=== PATIENT | female | born 1980 | race American Indian/Alaskan Native ===

== ENCOUNTER 2017-05-31 12:57 | Emergency (ER) | payer MEDICAID ==
[2017-05-31 13:05] VITALS: BP 168/107
--- NOTE | 2017-05-31 16:43 | Emergency Department Report ---
- General Chief Complaint: Eye Problems Stated Complaint: EYE/SINUS PAIN Time Seen by Provider: 05/31/17 15:46 Source: patient Mode of arrival: Ambulatory Limitations: No Limitations - History of Present Illness Initial Comments: This is a 36-year-old female nontoxic, well nourished in appearance, no acute signs of distress presents to the ED with c/o of front sinus pain, cough, rhinorrhea times one week. Patient is also c/o of painless nodular in the outer left upper eyelid. Patient stated this is present for the past month. Patient stated had this and resovled 3 months ago and came back. Patient denies any trauma, visual changes, or eye discharge. Patient denies productive cough. Denies any wheezing, chest pain, shortness of breath, numbness, tingling, chest pain or nausea or vomiting. Patient denies stiff neck or headache. Past medical history includes hypertension. Denies any drug allergies. MD Complaint: cough, rhinorrhea, nasal congestion, sinus pain, other (Chalazion ) -: Gradual, week(s) (1) Severity: mild Severity scale (0 -10): 8 Quality: aching Consistency: constant Improves With: nothing Worsens With: nothing Associated Symptoms: rhinorrhea, nasal congestion, cough. denies: fever, chills , myalgias, diaphoresis, headache, sore throat, stiff neck, chest pain, shortness of breath, abdominal pain, nausea, vomiting, diarrhea, dysuria, rash, right sweats, weight loss, epistaxis, hoarseness, ear pain Treatments Prior to Arrival: none - Related Data Previous Rx's Medication Instructions Recorded Last Taken Type Amoxicillin/K Clav Tab [Augmentin 1 tab PO Q12HR #20 tab 05/31/17 Unknown Rx 875 mg] Fluconazole [Diflucan TAB] 150 mg PO ONCE #2 tablet 05/31/17 Unknown Rx Allergies Allergy/AdvReac Type Severity Reaction Status Date / Time No Known Allergies Allergy Unverified 05/31/17 13:05 ED Review of Systems ROS: Stated complaint: EYE/SINUS PAIN Other details as noted in HPI Constitutional: denies: chills, fever Eyes: denies: eye pain, eye discharge, vision change ENT: congestion. denies: ear pain, throat pain Respiratory: cough. denies: shortness of breath, wheezing Cardiovascular: denies: chest pain, palpitations Endocrine: no symptoms reported Gastrointestinal: denies: abdominal pain, nausea, diarrhea Genitourinary: denies: urgency, dysuria, discharge Musculoskeletal: denies: back pain, joint swelling, arthralgia Skin: denies: rash, lesions Neurological: denies: headache, weakness, paresthesias Psychiatric: denies: anxiety, depression Hematological/Lymphatic: denies: easy bleeding, easy bruising ED Past Medical Hx - Past Medical History Hx Hypertension: Yes - Surgical History Additional Surgical History: x2 - Social History Smoking Status: Current Every Day Smoker Substance Use Type: None - Medications Home Medications: Home Medications Medication Instructions Recorded Confirmed Last Taken Type Amoxicillin/K Clav Tab [Augmentin 1 tab PO Q12HR #20 tab 05/31/17 Unknown Rx 875 mg] Fluconazole [Diflucan TAB] 150 mg PO ONCE #2 tablet 05/31/17 Unknown Rx ED Physical Exam - General Limitations: No Limitations General appearance: alert, in no apparent distress - Head Head exam: Present: atraumatic, normocephalic, normal inspection - Eye Eye exam: Present: normal appearance, PERRL, EOMI, other (painless with nodular lesion to the left upper outer eyelid). Absent: scleral icterus, conjunctival injection, nystagmus, periorbital swelling, periorbital tenderness Pupils: Present: normal accommodation - ENT ENT exam: Present: normal exam, normal orophraynx, mucous membranes moist, TM's normal bilaterally, normal external ear exam - Neck Neck exam: Present: normal inspection, full ROM. Absent: tenderness, meningismus, lymphadenopathy, thyromegaly - Respiratory Respiratory exam: Present: normal lung sounds bilaterally. Absent: respiratory distress, wheezes, rales, rhonchi, stridor, chest wall tenderness, accessory muscle use, decreased breath sounds, prolonged expiratory - Cardiovascular Cardiovascular Exam: Present: regular rate, normal rhythm, normal heart sounds. Absent: bradycardia, tachycardia, irregular rhythm, systolic murmur, diastolic murmur, rubs, gallop - GI/Abdominal GI/Abdominal exam: Present: soft, normal bowel sounds. Absent: distended, tenderness, guarding, rebound, rigid, diminished bowel sounds - Rectal Rectal exam: Present: deferred - Extremities Exam Extremities exam: Present: normal inspection, full ROM, normal capillary refill. Absent: tenderness, pedal edema, joint swelling, calf tenderness - Back Exam Back exam: Present: normal inspection, full ROM. Absent: tenderness, CVA tenderness (R), CVA tenderness (L), muscle spasm, paraspinal tenderness, vertebral tenderness, rash noted - Neurological Exam Neurological exam: Present: alert, oriented X3, CN II-XII intact, normal gait, reflexes normal - Psychiatric Psychiatric exam: Present: normal affect, normal mood - Skin Skin exam: Present: warm, dry, intact, normal color. Absent: rash - Other Other exam information: Positive frontal sinus tenderness. ED Course Vital Signs 05/31/17 13:02 Temperature 97.5 F L Pulse Rate 81 Respiratory 18 Rate Blood Pressure 168/107 O2 Sat by Pulse 97 Oximetry - Reevaluation(s) Reevaluation #1: 05/31/17 16:45 Patient is speaking in full sentences with no signs of distress noted. ED Medical Decision Making - Medical Decision Making This is a 36-year-old female that presents with sinusitis, upper resp infection , and chalazion. Patient was examined by me and patient is stable. Patient was instructed to place warm compressors to the left eyelid and should resolve or if not to follow-up with an opthomologist. Patient will be treated with augmentin at d/c. Patient was instructed to Follow-up with a primary care doctor in 3-5 days or if symptoms worsen and continue return to emergency room as soon as possible. At time time of discharge, the patient does not seem toxic or ill in appearance. No acute signs of distress noted. Patient agrees to discharge treatment plan of care. No further questions noted by the patient. Patient received Diflucian due to yeast infections that patients gets during antibiotics use. Critical care attestation.: If time is entered above; I have spent that time in minutes in the direct care of this critically ill patient, excluding procedure time. ED Disposition Clinical Impression: Upper respiratory infection Qualifiers: URI type: unspecified URI Qualified Code(s): J06.9 - Acute upper respiratory infection, unspecified Sinusitis Qualifiers: Sinusitis location: frontal Chronicity: acute Recurrence: non-recurrent Qualified Code(s): J01.10 - Acute frontal sinusitis, unspecified Chalazion Qualifiers: Laterality: left Eyelid: upper Qualified Code(s): H00.14 - Chalazion left upper eyelid Disposition: DC-01 TO HOME OR SELFCARE Is pt being admited?: No Does the pt Need Aspirin: No Condition: Stable Instructions: Chalazion (ED), Sinusitis (ED), Amoxicillin/Clavulanate Potassium (By mouth) Additional Instructions: Follow-up with a primary care doctor in 3-5 days or if symptoms worsen and continue return to emergency room as soon as possible. Prescriptions: Amoxicillin/K Clav Tab [Augmentin 875 mg] 1 tab PO Q12HR #20 tab Fluconazole [Diflucan TAB] 150 mg PO ONCE #2 tablet Referrals: DANIEL KRAUSE MD [Primary Care Provider] - 3-5 Days NICOLAS FAUST MD [Staff Physician] - 3-5 Days [facility] [Outside] - 3-5 Days [facility] [Outside] - 3-5 Days Forms: Work/School Release Form(ED)
== END 2017-05-31 17:07 | disposition home or self-care (01) ==
LOC: ED 12:57
DX: J06.9 Acute upper respiratory infection, unspecified (principal); J01.10 Acute frontal sinusitis, unspecified; H00.14 Chalazion left upper eyelid; I10 Essential (primary) hypertension; F17.200 Nicotine dependence, unspecified, uncomplicated
CPT/HCPCS: 99282

== ENCOUNTER 2017-12-19 02:31 | Emergency (ER) | payer MEDICAID ==
[2017-12-19] MEDS ORDERED: TYLENOL PO ONE (07:25)
[2017-12-19] MEDS ORDERED: TYLENOL ONE (07:27)
--- NOTE | 2017-12-19 08:11 | Emergency Department Report ---
ED General Adult HPI - General Chief complaint: Skin/Abscess/Foreign Body Stated complaint: BITTEN BY A BUG, RASH UNDER BREAST Time Seen by Provider: 12/19/17 08:01 Source: patient Mode of arrival: Ambulatory Limitations: No Limitations - History of Present Illness Initial comments: Patient is a 37-year-old female with no significant past medical history. Patient presented complaining of upper lid sty on both sides with also a small bump on her left neck. Patient is also complaining off rash under her left breast for months. Patient denied any fever, nausea or vomiting. Severity scale (0 -10): 7 - Related Data Previous Rx's Medication Instructions Recorded Last Taken Type Amoxicillin/K Clav Tab [Augmentin 1 tab PO Q12HR #20 tab 05/31/17 Unknown Rx 875 mg] Fluconazole [Diflucan TAB] 150 mg PO ONCE #2 tablet 05/31/17 Unknown Rx Allergies Allergy/AdvReac Type Severity Reaction Status Date / Time No Known Allergies Allergy Unverified 05/31/17 13:05 ED Review of Systems ROS: Stated complaint: BITTEN BY A BUG, RASH UNDER BREAST Other details as noted in HPI Comment: All other systems reviewed and negative Constitutional: denies: chills, fever Respiratory: denies: cough, orthopnea, shortness of breath Cardiovascular: denies: chest pain, palpitations ED Past Medical Hx - Past Medical History Previous Medical History?: Yes Hx Hypertension: Yes - Surgical History Past Surgical History?: Yes Additional Surgical History: x2 - Social History Smoking Status: Current Every Day Smoker Substance Use Type: None - Medications Home Medications: Home Medications Medication Instructions Recorded Confirmed Last Taken Type Amoxicillin/K Clav Tab [Augmentin 1 tab PO Q12HR #20 tab 05/31/17 Unknown Rx 875 mg] Fluconazole [Diflucan TAB] 150 mg PO ONCE #2 tablet 05/31/17 Unknown Rx ED Physical Exam - General Limitations: No Limitations General appearance: alert, in no apparent distress - Head Head exam: Present: atraumatic, normocephalic, normal inspection - ENT ENT exam: Present: normal exam, normal orophraynx, mucous membranes moist - Neck Neck exam: Present: normal inspection, full ROM. Absent: tenderness, meningismus, lymphadenopathy, thyromegaly - Respiratory Respiratory exam: Present: normal lung sounds bilaterally - Cardiovascular Cardiovascular Exam: Present: regular rate, normal rhythm, normal heart sounds - GI/Abdominal GI/Abdominal exam: Present: soft, normal bowel sounds. Absent: distended, tenderness, guarding, rebound, rigid, organomegaly, mass, bruit, pulsatile mass - Extremities Exam Extremities exam: Present: normal inspection, full ROM, normal capillary refill - Back Exam Back exam: Present: normal inspection, full ROM. Absent: tenderness, CVA tenderness (R), CVA tenderness (L), muscle spasm, paraspinal tenderness - Neurological Exam Neurological exam: Present: alert, oriented X3, CN II-XII intact - Skin Skin exam: Present: rash (under left breasts, cutaneous candidiasis) ED Course Vital Signs 12/19/17 12/19/17 05:16 07:30 Temperature 97.7 F Pulse Rate 87 Respiratory 18 18 Rate Blood Pressure 116/75 O2 Sat by Pulse 98 Oximetry Critical care attestation.: If time is entered above; I have spent that time in minutes in the direct care of this critically ill patient, excluding procedure time. ED Disposition Clinical Impression: Cutaneous candidiasis, Sty, external Disposition: DC-01 TO HOME OR SELFCARE Is pt being admited?: No Condition: Stable Instructions: Ashwini (ED), Evangelina Albicans Antigen (Intradermal) Referrals: PRIMARY CARE, [Primary Care Provider] - 3-5 Days
[2017-12-19 08:29] VITALS: BP 150/100
== END 2017-12-19 08:30 | disposition home or self-care (01) ==
LOC: ED 02:31
DX: B37.9 Candidiasis, unspecified (principal); H00.025 Hordeolum internum left lower eyelid; H00.021 Hordeolum internum right upper eyelid
CPT/HCPCS: 99282

== ENCOUNTER 2018-10-16 13:41 | Emergency (ER) | payer MEDICAID ==
[2018-10-16 13:58] VITALS: BP 184/123
--- NOTE | 2018-10-16 16:08 | Emergency Department Report ---
ED Dysuria HPI - HPI Chief Complaint: Urogenital-Female Stated Complaint: POSS VAGINAL INFECTION Time Seen by Provider: 10/16/18 16:03 Duration: 2 Days Severity: Mild Symptoms: Dysuria: No, Frequency: No, Suprapubic Pain: No, Flank Pain: No, Fever: No, Hematuria: No, Abdominal Pain: No, Previous UTI's: No Other History: 38 yo with thick chunky vag dc and itching. not concerned for sti. no dysuia. no back pain. pmh. none. psh. none. rx. none ED Review of Systems ROS: Stated complaint: POSS VAGINAL INFECTION Other details as noted in HPI Comment: All other systems reviewed and negative Constitutional: denies: see HPI Eyes: denies: eye pain ENT: denies: ear pain Respiratory: denies: see HPI Cardiovascular: denies: as per HPI Endocrine: denies: intolerance to cold Gastrointestinal: denies: nausea Genitourinary: as per HPI, discharge. denies: urgency, dysuria, frequency, hematuria, abnormal menses Musculoskeletal: denies: back pain Skin: denies: lesions Neurological: denies: headache Psychiatric: denies: depression Hematological/Lymphatic: denies: easy bleeding ED Past Medical Hx - Past Medical History Previous Medical History?: Yes Hx Hypertension: Yes - Surgical History Past Surgical History?: Yes Additional Surgical History: x2 - Social History Smoking Status: Never Smoker Substance Use Type: None - Medications Home Medications: Home Medications Medication Instructions Recorded Confirmed Last Taken Type Fluconazole [Diflucan] 150 mg PO DAILY #3 tablet 10/16/18 Unknown Rx Dysuria Exam - Exam General: Vital signs noted. No distress. Alert and acting appropriately. Exam: Yes Moist Mucous Membranes, No CVA Tenderness, No Abdominal Tenderness, No Rigidity or Guarding ED Course Vital Signs 10/16/18 13:56 Temperature 98.4 F Pulse Rate 91 H Respiratory 20 Rate Blood Pressure 184/123 O2 Sat by Pulse 97 Oximetry ED Medical Decision Making - Medical Decision Making Vital Signs 10/16/18 13:56 Temperature 98.4 F Pulse Rate 91 H Respiratory 20 Rate Blood Pressure 184/123 O2 Sat by Pulse 97 Oximetry Labs 10/16/18 16:02 Urine Color Straw Urine Turbidity Clear Urine pH 6.0 Ur Specific [place] 1.017 Urine Protein <15 mg/dl Urine Glucose (UA) Neg Urine Ketones Neg Urine Blood Neg Urine Nitrite Neg Urine Bilirubin Neg Urine Urobilinogen < 2.0 Ur Leukocyte Esterase Neg Urine WBC (Auto) 1.0 Urine RBC (Auto) 1.0 U Epithel Cells (Auto) 3.0 Urine Mucus Few Urine HCG, Qual Negative dc home with diflucan instructed to follow up with obgyn if persists ambulatory nontoxic afebrile taking po Critical care attestation.: If time is entered above; I have spent that time in minutes in the direct care of this critically ill patient, excluding procedure time. ED Disposition Clinical Impression: Vaginitis Disposition: DC-01 TO HOME OR SELFCARE Is pt being admited?: No Does the pt Need Aspirin: No Condition: Stable Instructions: Vulvovaginal Candidiasis (ED) Additional Instructions: HYDRATE WELL WITH WATER EAT YOGURT DAILY FOLLOW UP PCP IF PERSISTS ACTIVITY TOLERATED DIET TOLERATED MED ORDERED Prescriptions: Fluconazole [Diflucan] 150 mg PO DAILY #3 tablet Referrals: ADRIAN GARCIA MD [Primary Care Provider] - 3-5 Days Time of Disposition: 17:52
[2018-10-16 16:40] LABS: Bilirubin,Urine NEG (Negative); Blood,Urine NEG (Negative); Color,Urine Straw (Yellow); Mucus,Urine FEW /HPF; Protein,Urine <15 mg/dL mg/dL (Negative); Urobilinogen,Urine < 2.0 mg/dL (<2.0)
[2018-10-16 16:47] LABS: HCG Qualitative,Urine Negative (Negative)
== END 2018-10-16 18:25 | disposition home or self-care (01) ==
LOC: ED 13:41
DX: N76.0 Acute vaginitis (principal); I10 Essential (primary) hypertension
CPT/HCPCS: 81001; 81025; 99283

== ENCOUNTER 2019-03-25 16:13 | Emergency (ER) | payer MEDICAID ==
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
[2019-03-25 17:27] VITALS: BP 146/96
[2019-03-25] MEDS ORDERED: TYLENOL PO ONE (17:28)
[2019-03-25] MEDS ORDERED: TYLENOL ONE (17:31)
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
[2019-03-25] MEDS ORDERED: IBUPROFEN PO ONE (20:31)
[2019-03-25] MEDS ORDERED: ZOFRAN ODT PO ONE (20:31)
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
== END 2019-03-25 22:58 | disposition home or self-care (01) ==
LOC: ED 16:13
DX: S00.83XA Contusion of other part of head, initial encounter (principal); S00.03XA Contusion of scalp, initial encounter; J32.2 Chronic ethmoidal sinusitis; H10.32 Unspecified acute conjunctivitis, left eye; Y04.8XXA Assault by other bodily force, initial encounter; Y93.89 Activity, other specified; Y92.89 Other specified places as the place of occurrence of the external cause; Y99.8 Other external cause status
CPT/HCPCS: 70450; Q0162

== ENCOUNTER 2019-05-15 10:13 | Emergency (ER) | payer MEDICAID ==
[2019-05-15 10:20] VITALS: BP 159/107
[2019-05-15] MEDS ORDERED: TETANUS,DIPH,PERTUSS(ACELL) VACCINE 0.5 ML SYRINGE IM ONE (10:38)
--- NOTE | 2019-05-15 10:47 | Emergency Department Report ---
- General Chief complaint: Extremity Injury, Lower Stated complaint: BITE Time Seen by Provider: 05/15/19 10:34 Source: patient Mode of arrival: Ambulatory Limitations: No Limitations - History of Present Illness Initial comments: This is a 38-year-old female nontoxic, well nourished in appearance, no acute signs of distress presents to the ED with c/o of redness and pain to left anterior/lateral calf area. Stated has been taking Bactrim but is not helping. Patient denies any pus or drainage. Patient denies any fever, chills, nausea, vomiting, chest pain, shortness of breath, headache or stiff neck. Patient denies any allergies. MD complaint: insect bite/sting -: days(s) (4) Tetanus Up to Date: no Location: LUE Severity: mild Severity scale (0 -10): 8 Quality: aching Consistency: constant Improves with: none Worsens with: none Context: none Associated symptoms: denies other symptoms - Related Data Previous Rx's Medication Instructions Recorded Last Taken Type Fluconazole [Diflucan] 150 mg PO DAILY #3 tablet 10/16/18 Unknown Rx hydroCHLOROthiazide [HCTZ] 25 mg PO QDAY #30 tablet 10/16/18 Unknown Rx Amoxicillin [Trimox CAP] 500 mg PO Q8H #30 capsule 03/25/19 Unknown Rx Cyclobenzaprine HCl [Flexeril 5 MG 5 mg PO Q8H PRN #15 tab 03/25/19 Unknown Rx TAB] Gentamicin 0.3% Ophth Soln 1 drops OP Q4H #5 ml 03/25/19 Unknown Rx Ibuprofen [Motrin] 600 mg PO Q8H PRN #20 tablet 03/25/19 Unknown Rx Acetaminophen/Codeine [Tylenol 1 tab PO Q6H PRN #12 tab 05/15/19 Unknown Rx /Codeine # 3 tab] Clindamycin [Clindamycin CAP] 300 mg PO Q8H #21 cap 05/15/19 Unknown Rx hydroCHLOROthiazide [HCTZ] 25 mg PO QDAY #30 tablet 05/15/19 Unknown Rx Allergies Allergy/AdvReac Type Severity Reaction Status Date / Time No Known Allergies Allergy Verified 03/25/19 16:17 Abscess Boil HPI - HPI Chief Complaint: Extremity Injury, Lower Stated Complaint: BITE Time Seen by Provider: 05/15/19 10:34 Home Medications: Previous Rx's Medication Instructions Recorded Last Taken Type Fluconazole [Diflucan] 150 mg PO DAILY #3 tablet 10/16/18 Unknown Rx hydroCHLOROthiazide [HCTZ] 25 mg PO QDAY #30 tablet 10/16/18 Unknown Rx Amoxicillin [Trimox CAP] 500 mg PO Q8H #30 capsule 03/25/19 Unknown Rx Cyclobenzaprine HCl [Flexeril 5 MG 5 mg PO Q8H PRN #15 tab 03/25/19 Unknown Rx TAB] Gentamicin 0.3% Ophth Soln 1 drops OP Q4H #5 ml 03/25/19 Unknown Rx Ibuprofen [Motrin] 600 mg PO Q8H PRN #20 tablet 03/25/19 Unknown Rx Acetaminophen/Codeine [Tylenol 1 tab PO Q6H PRN #12 tab 05/15/19 Unknown Rx /Codeine # 3 tab] Clindamycin [Clindamycin CAP] 300 mg PO Q8H #21 cap 05/15/19 Unknown Rx hydroCHLOROthiazide [HCTZ] 25 mg PO QDAY #30 tablet 05/15/19 Unknown Rx Allergies/Adverse Reactions: Allergies Allergy/AdvReac Type Severity Reaction Status Date / Time No Known Allergies Allergy Verified 03/25/19 16:17 ED Review of Systems ROS: Stated complaint: BITE Other details as noted in HPI Constitutional: denies: chills, fever Eyes: denies: eye pain, eye discharge, vision change ENT: denies: ear pain, throat pain Respiratory: denies: cough, shortness of breath, wheezing Cardiovascular: denies: chest pain, palpitations Endocrine: no symptoms reported Gastrointestinal: denies: abdominal pain, nausea, diarrhea Genitourinary: denies: urgency, dysuria, discharge Musculoskeletal: denies: back pain, joint swelling, arthralgia Skin: denies: rash, lesions Neurological: denies: headache, weakness, paresthesias Psychiatric: denies: anxiety, depression Hematological/Lymphatic: denies: easy bleeding, easy bruising ED Past Medical Hx - Past Medical History Previous Medical History?: Yes Hx Hypertension: Yes - Surgical History Past Surgical History?: Yes Additional Surgical History: x2 - Social History Smoking Status: Current Every Day Smoker Substance Use Type: None - Medications Home Medications: Home Medications Medication Instructions Recorded Confirmed Last Taken Type Fluconazole [Diflucan] 150 mg PO DAILY #3 tablet 10/16/18 Unknown Rx hydroCHLOROthiazide [HCTZ] 25 mg PO QDAY #30 tablet 10/16/18 Unknown Rx Amoxicillin [Trimox CAP] 500 mg PO Q8H #30 capsule 03/25/19 Unknown Rx Cyclobenzaprine HCl [Flexeril 5 MG 5 mg PO Q8H PRN #15 tab 03/25/19 Unknown Rx TAB] Gentamicin 0.3% Ophth Soln 1 drops OP Q4H #5 ml 03/25/19 Unknown Rx Ibuprofen [Motrin] 600 mg PO Q8H PRN #20 tablet 03/25/19 Unknown Rx Acetaminophen/Codeine [Tylenol 1 tab PO Q6H PRN #12 tab 05/15/19 Unknown Rx /Codeine # 3 tab] Clindamycin [Clindamycin CAP] 300 mg PO Q8H #21 cap 05/15/19 Unknown Rx hydroCHLOROthiazide [HCTZ] 25 mg PO QDAY #30 tablet 05/15/19 Unknown Rx ED Physical Exam - General Limitations: No Limitations General appearance: alert, in no apparent distress - Head Head exam: Present: atraumatic, normocephalic - Extremities Exam Extremities exam: Present: normal inspection, full ROM, tenderness, normal capillary refill. Absent: joint swelling, calf tenderness - Expanded Lower Extremity Exam Left Hip exam: Present: normal inspection, full ROM. Absent: tenderness, swelling Upper Leg exam: Present: normal inspection, full ROM. Absent: tenderness, swelling Knee exam: Present: normal inspection, full ROM. Absent: tenderness, swelling Lower Leg exam: Present: normal inspection, full ROM, tenderness, erythema. Absent: swelling, abrasion, laceration, ecchymosis, deformity, crepidus, dislocation, palpable cord, Annabelle's sign Ankle exam: Present: normal inspection, full ROM. Absent: tenderness, swelling Foot/Toe exam: Present: normal inspection, full ROM. Absent: tenderness, swelling Neuro vascular tendon exam: Present: no vascular compromise Gait: Positive: observed and normal 1 - 3 cm x 3 cm cellulitis noted. no ascbess. no swelling. no induration or f luatance. - Back Exam Back exam: Present: normal inspection, full ROM - Neurological Exam Neurological exam: Present: alert, oriented X3, normal gait - Psychiatric Psychiatric exam: Present: normal affect, normal mood - Skin Skin exam: Present: warm, dry, intact, normal color. Absent: rash ED Course Vital Signs 05/15/19 10:15 Temperature 97.5 F L Pulse Rate 77 Respiratory 18 Rate Blood Pressure 159/107 O2 Sat by Pulse 96 Oximetry - Reevaluation(s) Reevaluation #1: 05/15/19 11:03 Patient is speaking in full sentences with no signs of distress noted. ED Medical Decision Making - Medical Decision Making This is a 38-year-old female that presents with cellulitis. Patient is stable and was examined by me. There is no induration, fluctuance. No signs of abscess formation. The area has been outlined with a permanent marker and patient was instructed to observe symptoms of increased redness or swelling and to return to the ER if this does occur. I will discharge patient with Clinda and was instucted to stop taking Bactrim. Patient did receive a tetanus booster in the ER. Patient was referred to Follow-up with a primary care doctor in 3-5 days or if symptoms worsen and continue return to emergency room as soon as possible. At time of discharge, the patient does not seem toxic or ill in appearance. No acute signs of distress noted. Patient agrees to discharge treatment plan of care. No further questions noted by the patient. Patient also requested for hydrochlorothiazide refill as she states takes 25 mg daily. Critical care attestation.: If time is entered above; I have spent that time in minutes in the direct care of this critically ill patient, excluding procedure time. ED Disposition Clinical Impression: Cellulitis Qualifiers: Site of cellulitis: extremity Site of cellulitis of extremity: lower extremity Laterality: left Qualified Code(s): L03.116 - Cellulitis of left lower limb Disposition: -01 TO HOME OR SELFCARE Is pt being admited?: No Does the pt Need Aspirin: No Condition: Stable Instructions: Cellulitis (ED), Acetaminophen/Codeine (By mouth) Additional Instructions: Follow-up with a primary care doctor in 3-5 days or if symptoms worsen and continue return to emergency room as soon as possible. Do not operate any machinery while taking Tylenol with codeine as this may cause drowsiness. Prescriptions: Clindamycin [Clindamycin CAP] 300 mg PO Q8H #21 cap hydroCHLOROthiazide [HCTZ] 25 mg PO QDAY #30 tablet Acetaminophen/Codeine [Tylenol /Codeine # 3 tab] 1 tab PO Q6H PRN #12 tab PRN Reason: Pain , Severe (7-10) Referrals: PRIMARY CARE, [Primary Care Provider] - 3-5 Days NICOLAS FAUST MD [Staff Physician] - 3-5 Days [facility] [Outside] - 3-5 Days [facility] [Outside] - 3-5 Days Forms: Work/School Release Form(ED)
== END 2019-05-15 11:12 | disposition home or self-care (01) ==
LOC: ED 10:13
DX: L03.116 Cellulitis of left lower limb (principal); I10 Essential (primary) hypertension; F17.200 Nicotine dependence, unspecified, uncomplicated; Z79.899 Other long term (current) drug therapy; W57.XXXA Bitten or stung by nonvenomous insect and other nonvenomous arthropods, initial encounter; Y93.89 Activity, other specified; Y92.89 Other specified places as the place of occurrence of the external cause; Y99.8 Other external cause status
CPT/HCPCS: 90471; 90715

== ENCOUNTER 2020-11-09 11:27 | Emergency (ER) | payer MEDICAID ==
[2020-11-09 12:34] VITALS: BP 172/105
--- NOTE | 2020-11-09 12:38 | Emergency Department Report ---
- General Chief Complaint: Upper Respiratory Infection Stated Complaint: SINUS INFECTION Time Seen by Provider: 11/09/20 11:49 Source: patient Mode of arrival: Ambulatory Limitations: No Limitations - History of Present Illness Initial Comments: 40-year-old female with a past medical history of chronic sinus disease, and hypertension presents to the ER today complaining of "having a bad sinus infection". Patient states that she has been having sinus issues for about 6 months. She has never been evaluated by an ENT for sinus issues. She states that she is here today because she is having a lot of nasal congestion, and increased clear rhinorrhea. She also complains of small nontender cyst to her left upper lid. She reports small amt of drainage from it and mild crust and matting. She states that she has a history of styes and a concern that she may have another one. Patient states that she has been out of her HCTZ for few months. She states she does not have a primary care doctor follow-up with and is requesting refills on her HCTZ. MD Complaint: sinus pain, other (Blood pressure medication refill,stye) - Related Data Previous Rx's Medication Instructions Recorded Last Taken Type Fluconazole [Diflucan] 150 mg PO DAILY #3 tablet 10/16/18 Unknown Rx Amoxicillin [Trimox CAP] 500 mg PO Q8H #30 capsule 03/25/19 Unknown Rx Cyclobenzaprine HCl [Flexeril 5 MG 5 mg PO Q8H PRN #15 tab 03/25/19 Unknown Rx TAB] Acetaminophen/Codeine [Tylenol 1 tab PO Q6H PRN #12 tab 05/15/19 Unknown Rx /Codeine # 3 tab] Clindamycin [Clindamycin CAP] 300 mg PO Q8H #21 cap 05/15/19 Unknown Rx hydroCHLOROthiazide [HCTZ] 25 mg PO QDAY #30 tablet 05/15/19 Unknown Rx Erythromycin [Erythromycin Ophth 1 applic OS 5XD 7 Days #1 tube 11/09/20 Unknown Rx Oint] Fexofenadine HCl [Raissa Allergy] 180 mg PO DAILY #30 tablet 11/09/20 Unknown Rx Fluticasone [Flonase] 2 spray NS QDAY #1 bottle 11/09/20 Unknown Rx hydroCHLOROthiazide [HCTZ] 25 mg PO QDAY #30 tablet 11/09/20 Unknown Rx methylPREDNISolone [Medrol 4MG 4 mg PO DAILY #1 tab.ds.pk 11/09/20 Unknown Rx DOSEPAK (21 tabs)] Allergies Allergy/AdvReac Type Severity Reaction Status Date / Time No Known Allergies Allergy Verified 03/25/19 16:17 ED Review of Systems ROS: Stated complaint: SINUS INFECTION Other details as noted in HPI Comment: All other systems reviewed and negative Constitutional: denies: chills, diaphoresis, fever, malaise Eyes: other (swollen area left upper lid ). denies: eye pain, eye discharge, vision change ENT: congestion, other (rhinorrhea ). denies: ear pain, throat pain Respiratory: denies: cough, shortness of breath, SOB with exertion, SOB at rest, wheezing Cardiovascular: denies: chest pain, palpitations Endocrine: no symptoms reported Gastrointestinal: denies: abdominal pain, nausea, diarrhea, constipation, hematemesis, melena, hematochezia Genitourinary: denies: urgency, dysuria, discharge Skin: denies: rash, lesions Neurological: denies: headache, weakness, numbness, paresthesias, confusion, abnormal gait, vertigo Psychiatric: denies: anxiety, depression Hematological/Lymphatic: denies: easy bleeding, easy bruising ED Past Medical Hx - Past Medical History Previous Medical History?: Yes Hx Hypertension: Yes - Surgical History Additional Surgical History: x2 - Social History Smoking Status: Never Smoker Substance Use Type: None - Medications Home Medications: Home Medications Medication Instructions Recorded Confirmed Last Taken Type Fluconazole [Diflucan] 150 mg PO DAILY #3 tablet 10/16/18 Unknown Rx Amoxicillin [Trimox CAP] 500 mg PO Q8H #30 capsule 03/25/19 Unknown Rx Cyclobenzaprine HCl [Flexeril 5 MG 5 mg PO Q8H PRN #15 tab 03/25/19 Unknown Rx TAB] Acetaminophen/Codeine [Tylenol 1 tab PO Q6H PRN #12 tab 05/15/19 Unknown Rx /Codeine # 3 tab] Clindamycin [Clindamycin CAP] 300 mg PO Q8H #21 cap 05/15/19 Unknown Rx hydroCHLOROthiazide [HCTZ] 25 mg PO QDAY #30 tablet 05/15/19 Unknown Rx Erythromycin [Erythromycin Ophth 1 applic OS 5XD 7 Days #1 tube 11/09/20 U nknown Rx Oint] Fexofenadine HCl [Raissa Allergy] 180 mg PO DAILY #30 tablet 11/09/20 Unknown Rx Fluticasone [Flonase] 2 spray NS QDAY #1 bottle 11/09/20 Unknown Rx hydroCHLOROthiazide [HCTZ] 25 mg PO QDAY #30 tablet 11/09/20 Unknown Rx methylPREDNISolone [Medrol 4MG 4 mg PO DAILY #1 tab.ds.pk 11/09/20 Unknown Rx DOSEPAK (21 tabs)] ED Physical Exam - General Limitations: No Limitations ED Course Vital Signs 11/09/20 11/09/20 11:42 12:58 Temperature 98.4 F Pulse Rate 73 87 Respiratory 20 16 Rate Blood Pressure 172/105 O2 Sat by Pulse 98 98 Oximetry ED Medical Decision Making - Medical Decision Making Patient is well-appearing, not toxic and is not in any acute distress. She appears well-hydrated. She is neurologically intact with a normal gait in the ER. Patient will be treated with steroids, antihistamines and nasal spray to help with her sinus. No antibiotics for sinuses indicated at this time. She will also be treated with erythromycin ointment for her stye. No evidence of associated periorbital cellulitis or orbital cellulitis or conjunctivitis at this time. Patient blood pressure is noted to be elevated in triage but she has been off her blood pressure medication for 2 months. She currently has no complaints related to her blood pressure. She will be given a refill on her HCTZ. Her remaining vitals are otherwise stable. Patient will be given refe rral to ENT and primary care doctor for continued follow-up. Discussed discharge instructions and treatment plan with patient. She agrees with plan. She was stable at time of discharge Critical care attestation.: If time is entered above; I have spent that time in minutes in the direct care of this critically ill patient, excluding procedure time. ED Disposition Clinical Impression: Chronic sinusitis, Stye external, Uncontrolled hypertension, Noncompliance with medication regimen Disposition: - TO HOME OR SELFCARE Is pt being admited?: No Does the pt Need Aspirin: No Condition: Stable Instructions: Stye, Sinusitis, Adult, [id number], Hypertension, Adult, Hypertension (ED) Additional Instructions: Use the erythromycin ointment as prescribed. Take the Medrol Dosepak, the Raissa and use of Flonase as discussed. Follow-up with the ENT for further evaluation of your chronic sinus disease. Also start taking your HCTZ today and follow-up with the primary care doctor listed on your discharge instruction for continued monitoring of your blood pressure. Return to the ER if your symptoms changes or worsens in any way. Prescriptions: Fexofenadine HCl [Raissa Allergy] 180 mg PO DAILY #30 tablet Erythromycin [Erythromycin Ophth Oint] 1 applic OS 5XD 7 Days #1 tube Fluticasone [Flonase] 2 spray NS QDAY #1 bottle hydroCHLOROthiazide [HCTZ] 25 mg PO QDAY #30 tablet methylPREDNISolone [Medrol 4MG DOSEPAK (21 tabs)] 4 mg PO DAILY #1 tab.ds.pk Referrals: STACI MANCUSO MD [Staff Physician] - 3-5 Days JANESSA PATTERSON MD [Staff Physician] - 3-5 Days Time of Disposition: 12:46
== END 2020-11-09 13:00 | disposition home or self-care (01) ==
LOC: ED 11:27
DX: J32.9 Chronic sinusitis, unspecified (principal); H00.014 Hordeolum externum left upper eyelid; I10 Essential (primary) hypertension; Z91.14 Patient's other noncompliance with medication regimen; Z98.890 Other specified postprocedural states; Z79.2 Long term (current) use of antibiotics; Z79.899 Other long term (current) drug therapy
CPT/HCPCS: 99281

== ENCOUNTER 2022-03-27 10:45 | Emergency (ER) | payer MEDICAID ==
--- NOTE | 2022-03-27 12:01 | XRay Report ---
CHEST 2 VIEWS INDICATION / CLINICAL INFORMATION: fever, weakness. COMPARISON: None available. FINDINGS: SUPPORT DEVICES: None. HEART / MEDIASTINUM: No significant abnormality. LUNGS / PLEURA: No significant pulmonary or pleural abnormality. No pneumothorax. ADDITIONAL FINDINGS: No significant additional findings. IMPRESSION: 1. No acute findings. Signer Name: John Munguia Jr, MD Signed: 03/27/2022 11:57 AM Workstation Name: [id number]
[2022-03-27 13:44] LABS: Hematocrit 38.7 % (30.3-42.9); Hemoglobin 12.9 gm/dl (10.1-14.3); Mean Corpuscular HGB Conc 33 % (30-34); Mean Corpuscular Volume 82 fl (79-97); Platelet Count 323 K/mm3 (140-440); Red Blood Count 4.74 M/mm3 (3.65-5.03); Red Cell Distribution Width 17.5 % (13.2-15.2)
[2022-03-27 14:12] VITALS: BP 137/90
[2022-03-27 14:28] LABS: Alanine Aminotransferase 6 units/L (7-56); Albumin 4.2 g/dL (3.9-5); Blood Urea Nitrogen 5 mg/dL (7-17); Calcium 9.2 mg/dL (8.4-10.2); Hemolysis Index 0
[2022-03-27 14:41] LABS: BUN/Creatinine Ratio 8
[2022-03-27] MEDS ORDERED: IBUPROFEN 800 MG TAB PO ONE (16:59)
--- NOTE | 2022-03-27 16:59 | Emergency Department Report ---
ED General Adult HPI - General Chief complaint: Weakness Stated complaint: HEADACHE, BODY ACHES, GENERAL WEAKNESS Time Seen by Provider: 03/27/22 13:55 Source: patient, EMS Mode of arrival: Ambulatory Limitations: No Limitations - History of Present Illness Initial comments: 41 YO COMES TO ER WITH COLD LIKE SYMPTOMS FOR SEVERAL DAYS. SINUS PAIN/CONGESTI ON/RED EYES/SORE THROAT/COUGH LOW GRADE FEVERS NO PURULENT SPUTUM AMBULATORY TO FT IN NAD -: Gradual, days(s) Location: chest Severity scale (0 -10): 4 - Related Data Previous Rx's Medication Instructions Recorded Last Taken Type Fluconazole [Diflucan] 150 mg PO DAILY #3 tablet 10/16/18 Unknown Rx Amoxicillin [Trimox CAP] 500 mg PO Q8H #30 capsule 03/25/19 Unknown Rx Cyclobenzaprine HCl [Flexeril 5 MG 5 mg PO Q8H PRN #15 tab 03/25/19 Unknown Rx TAB] Acetaminophen/Codeine [Tylenol 1 tab PO Q6H PRN #12 tab 05/15/19 Unknown Rx /Codeine # 3 tab] Clindamycin [Clindamycin CAP] 300 mg PO Q8H #21 cap 05/15/19 Unknown Rx hydroCHLOROthiazide [HCTZ] 25 mg PO QDAY #30 tablet 05/15/19 Unknown Rx Erythromycin [Erythromycin Ophth 1 applic OS 5XD 7 Days #1 tube 11/09/20 Unknown Rx Oint] Fexofenadine HCl [Raissa Allergy] 180 mg PO DAILY #30 tablet 11/09/20 Unknown Rx Fluticasone [Flonase] 2 spray NS QDAY #1 bottle 11/09/20 Unknown Rx hydroCHLOROthiazide [HCTZ] 25 mg PO QDAY #30 tablet 11/09/20 Unknown Rx methylPREDNISolone [Medrol 4MG 4 mg PO DAILY #1 tab.ds.pk 11/09/20 Unknown Rx DOSEPAK (21 tabs)] Azithromycin [Zithromax Z-MARBIN] 250 mg PO DAILY #6 tablet 03/27/22 Unknown Rx Cetirizine HCl [ZyrTEC] 10 mg PO DAILY #30 capsule 03/27/22 Unknown Rx Fluticasone [Flonase] 1 spray NS QDAY #1 bottle 03/27/22 Unknown Rx Ibuprofen [Motrin] 800 mg PO Q8HR PRN #30 tablet 03/27/22 Unknown Rx predniSONE [Deltasone] 20 mg PO DAILY #5 tablet 03/27/22 Unknown Rx Allergies Allergy/AdvReac Type Severity Reaction Status Date / Time No Known Allergies Allergy Verified 03/27/22 10:48 ED Review of Systems ROS: Stated complaint: HEADACHE, BODY ACHES, GENERAL WEAKNESS Other details as noted in HPI Comment: All other systems reviewed and negative ED Past Medical Hx - Past Medical History Previous Medical History?: Yes Hx Hypertension: Yes - Surgical History Past Surgical History?: Yes Additional Surgical History: x2 - Family History Family history: no significant - Social History Smoking Status: Never Smoker Substance Use Type: None - Medications Home Medications: Home Medications Medication Instructions Recorded Confirmed Last Taken Type Fluconazole [Diflucan] 150 mg PO DAILY #3 tablet 10/16/18 Unknown Rx Amoxicillin [Trimox CAP] 500 mg PO Q8H #30 capsule 03/25/19 Unknown Rx Cyclobenzaprine HCl [Flexeril 5 MG 5 mg PO Q8H PRN #15 tab 03/25/19 Unknown Rx TAB] Acetaminophen/Codeine [Tylenol 1 tab PO Q6H PRN #12 tab 05/15/19 Unknown Rx /Codeine # 3 tab] Clindamycin [Clindamycin CAP] 300 mg PO Q8H #21 cap 05/15/19 Unknown Rx hydroCHLOROthiazide [HCTZ] 25 mg PO QDAY #30 tablet 05/15/19 Unknown Rx Erythromycin [Erythromycin Ophth 1 applic OS 5XD 7 Days #1 tube 11/09/20 Unknown Rx Oint] Fexofenadine HCl [Raissa Allergy] 180 mg PO DAILY #30 tablet 11/09/20 Unknown Rx Fluticasone [Flonase] 2 spray NS QDAY #1 bottle 11/09/20 Unknown Rx hydroCHLOROthiazide [HCTZ] 25 mg PO QDAY #30 tablet 11/09/20 Unknown Rx methylPREDNISolone [Medrol 4MG 4 mg PO DAILY #1 tab.ds.pk 11/09/20 Unknown Rx DOSEPAK (21 tabs)] Azithromycin [Zithromax Z-MARBIN] 250 mg PO DAILY #6 tablet 03/27/22 Unknown Rx Cetirizine HCl [ZyrTEC] 10 mg PO DAILY #30 capsule 03/27/22 Unknown Rx Fluticasone [Flonase] 1 spray NS QDAY #1 bottle 03/27/22 Unknown Rx Ibuprofen [Motrin] 800 mg PO Q8HR PRN #30 tablet 03/27/22 Unknown Rx predniSONE [Deltasone] 20 mg PO DAILY #5 tablet 03/27/22 Unknown Rx ED Physical Exam - General Limitations: No Limitations General appearance: alert, in no apparent distress - Head Head exam: Present: atraumatic, normocephalic - Eye Eye exam: Present: normal appearance - ENT ENT exam: Present: mucous membranes moist - Neck Neck exam: Present: normal inspection - Respiratory Respiratory exam: Present: normal lung sounds bilaterally. Absent: respiratory distress - Cardiovascular Cardiovascular Exam: Present: regular rate, normal rhythm. Absent: systolic murmur, diastolic murmur, rubs, gallop - GI/Abdominal GI/Abdominal exam: Present: soft, normal bowel sounds - Extremities Exam Extremities exam: Present: normal inspection - Back Exam Back exam: Present: normal inspection - Neurological Exam Neurological exam: Present: alert, oriented X3 - Psychiatric Psychiatric exam: Present: normal affect, normal mood - Skin Skin exam: Present: warm, dry, intact, normal color. Absent: rash ED Course Vital Signs 03/27/22 03/27/22 10:46 14:11 Temperature 100.0 F H 98.6 F Pulse Rate 110 H 102 H Respiratory 18 18 Rate Blood Pressure 165/88 [Left] Blood Pressure 137/90 [Right] O2 Sat by Pulse 99 98 Oximetry ED Medical Decision Making - Lab Data Result diagrams: 03/27/22 12:52 03/27/22 12:52 - EKG Data -: EKG Interpreted by Ma EKG shows normal: sinus rhythm Rate: normal - EKG Data When compared to previous EKG there are: no significant change Interpretation: no acute changes - Radiology Data Radiology results: report reviewed, image reviewed - Medical Decision Making Lab Results 03/27/22 03/27/22 03/27/22 Range/Units 12:52 12:52 12:52 WBC 5.9 (4.5-11.0) K/mm3 RBC 4.74 (3.65-5.03) M/mm3 Hgb 12.9 (10.1-14.3) gm/dl Hct 38.7 (30.3-42.9) % MCV 82 (79-97) fl MCH 27 L (28-32) pg MCHC 33 (30-34) % RDW 17.5 H (13.2-15.2) % Plt Count 323 (140-440) K/mm3 Sodium 131 L (137-145) mmol/L Potassium 4.4 (3.6-5.0) mmol/L Chloride 97.6 L (98-107) mmol/L Carbon Dioxide 26 (22-30) mmol/L Anion Gap 12 mmol/L BUN 5 L (7-17) mg/dL Creatinine 0.6 (0.6-1.2) mg/dL Estimated GFR > 60 ml/min BUN/Creatinine Ratio 8 % Glucose 96 (65-100) mg/dL Calcium 9.2 (8.4-10.2) mg/dL Total Bilirubin 0.50 (0.1-1.2) mg/dL AST 13 (5-40) units/L ALT 6 L (7-56) units/L Alkaline Phosphatase 64 (35-129) units/L Troponin T < 0.010 (0.00-0.029) ng/mL Total Protein 7.0 (6.3-8.2) g/dL Albumin 4.2 (3.9-5) g/dL Albumin/Globulin Ratio 1.5 % Urine RBC (Auto) (0.0-6.0) /HPF U Epithel Cells (Auto) (0-13.0) /HPF 03/27/22 Range/Units 16:19 WBC (4.5-11.0) K/mm3 RBC (3.65-5.03) M/mm3 Hgb (10.1-14.3) gm/dl Hct (30.3-42.9) % MCV (79-97) fl MCH (28-32) pg MCHC (30-34) % RDW (13.2-15.2) % Plt Count (140-440) K/mm3 Sodium (137-145) mmol/L Potassium (3.6-5.0) mmol/L Chloride (98-107) mmol/L Carbon Dioxide (22-30) mmol/L Anion Gap mmol/L BUN (7-17) mg/dL Creatinine (0.6-1.2) mg/dL Estimated GFR ml/min BUN/Creatinine Ratio % Glucose (65-100) mg/dL Calcium (8.4-10.2) mg/dL Total Bilirubin (0.1-1.2) mg/dL AST (5-40) units/L ALT (7-56) units/L Alkaline Phosphatase (35-129) units/L Troponin T (0.00-0.029) ng/mL Total Protein (6.3-8.2) g/dL Albumin (3.9-5) g/dL Albumin/Globulin Ratio % Urine RBC (Auto) 4.0 (0.0-6.0) /HPF U Epithel Cells (Auto) 58.0 H (0-13.0) /HPF Vital Signs 03/27/22 03/27/22 10:46 14:11 Temperature 100.0 F H 98.6 F Pulse Rate 110 H 102 H Respiratory 18 18 Rate Blood Pressure 165/88 [Left] Blood Pressure 137/90 [Right] O2 Sat by Pulse 99 98 Oximetry XRAY NAP MEDICATED IN ER FOR URI DC HOME WITH DC PLAN OF CARE INCLUDING DIET, MEDS, ACTIVITY AND FOLLOW UP PT VERBALZES UNDERSTANDING OF PLAN OF CARE - Differential Diagnosis URI Critical care attestation.: If time is entered above; I have spent that time in minutes in the direct care of this critically ill patient, excluding procedure time. ED Disposition Clinical Impression: URI (upper respiratory infection), Sinusitis Disposition: 01 HOME / SELF CARE / HOMELESS Is pt being admited?: No Does the pt Need Aspirin: No Condition: Stable Instructions: Viral Respiratory Infection, [id number] Additional Instructions: STAY WELL HYDRATED WITH WATER MOTRIN OR TYLENOL FOR PAIN OR FEVER FOLLOW UP WITH PCP IN 48 HOURS FOR RECHECK REFERRAL BELOW DIET AND ACTIVITY TOLERATED MEDS ORDERED Prescriptions: predniSONE [Deltasone] 20 mg PO DAILY #5 tablet Fluticasone [Flonase] 1 spray NS QDAY #1 bottle Ibuprofen [Motrin] 800 mg PO Q8HR PRN #30 tablet PRN Reason: Pain, Moderate (4-6) Azithromycin [Zithromax Z-MARBIN] 250 mg PO DAILY #6 tablet Cetirizine HCl [ZyrTEC] 10 mg PO DAILY #30 capsule Referrals: STACI MANCUSO MD [Staff Physician] - 3-5 Days Forms: Work/School Release Form(ED) Time of Disposition: 17:09
[2022-03-27 17:07] LABS: Bacteria,Urine 4+ /HPF (Negative); Mucus,Urine 1+ /HPF
[2022-03-27 17:13] LABS: Color,Urine Yellow (Yellow)
[2022-03-27 17:14] LABS: HCG Qualitative,Urine Negative (Negative)
[2022-03-27] MEDS ORDERED: dexAMETHasone 4 MG/ML VIAL IM ONE (17:14)
[2022-03-27] MEDS ORDERED: HYDROcodone/ACETAMINOPHEN 5-325 MG TAB PO ONE (17:16)
--- NOTE | 2022-03-28 10:55 | Electrocardiograph Report ---
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
== END 2022-03-27 17:15 | disposition home or self-care (01) ==
LOC: ED 10:45
DX: J06.9 Acute upper respiratory infection, unspecified (principal); J32.9 Chronic sinusitis, unspecified; I10 Essential (primary) hypertension
CPT/HCPCS: 36415; 71046; 80053; 81001; 81025; 84484; 85027; 93005; 96372; 99284; J1100